=== PATIENT | male | born 1995 | race Caucasian/White ===

== ENCOUNTER 2024-08-06 18:03 | Inpatient (IN) | payer OTHER ==
[2024-08-06 19:16] VITALS: BMI 25.0
[2024-08-06] MEDS ORDERED: BENZOCAINE/MENTHOL (CHLORASEPTIC ) LOZENGE MM PRN (20:04)
[2024-08-06] MEDS ORDERED: guaiFENesin 600 MG TABLET.ER (FP) PO PRN (20:04)
[2024-08-06] MEDS ORDERED: NALOXONE (NARCAN) HCL 4 MG/0.1 ML SPRAY NS PRN (20:04)
[2024-08-06] MEDS ORDERED: BENZONATATE 200 MG CAPSULE PO PRN (20:04)
[2024-08-06] MEDS ORDERED: DICYCLOMINE HCL 10 MG CAPSULE PO PRN (20:04)
[2024-08-06] MEDS ORDERED: POLYETHYLENE GLYCOL (HEALTHYLAX) 3350 17 GM PACKET PO PRN (20:04)
[2024-08-06] MEDS ORDERED: ONDANSETRON *ODT* 4 MG TABLET SL PRN (20:04)
[2024-08-06] MEDS ORDERED: MAGNESIUM HYDROX 2400MG/30ML ORAL SUSPENSION 30 ML CUP PO PRN (20:04)
[2024-08-06] MEDS ORDERED: MAG HYDROX/AL HYDROX/SIMETH 30 ML UNIT-DOSE CUP PO PRN (20:04)
[2024-08-06] MEDS ORDERED: NALOXONE HCL 0.4 MG/ML VIAL IM PRN (20:04)
[2024-08-06] MEDS ORDERED: LOPERAMIDE HCL 2 MG CAPSULE PO PRN (20:04)
[2024-08-06] MEDS ORDERED: BISMUTH SUBSALICYLATE 524 MG/30 ML PO PRN (20:04)
[2024-08-06] MEDS ORDERED: ACETAMINOPHEN 325 MG TABLET (FP) PO PRN (20:04)
[2024-08-06] MEDS ORDERED: IBUPROFEN 400 MG TABLET (FP) PO PRN (20:04)
[2024-08-06] MEDS ORDERED: IBUPROFEN 600 MG TABLET (FP) PO PRN (20:04)
[2024-08-06] MEDS ORDERED: cloNIDine HCL 0.1 MG TABLET PO PRN (20:07)
[2024-08-06] MEDS ORDERED: hydrOXYzine PAMOATE 25 MG CAPSULE (FP) PO ONE (20:16)
[2024-08-06] MEDS: hydrOXYzine PAMOATE 50 MG CAPSULE (FP) PO ONE (20:19)
[2024-08-06] MEDS: MELATONIN 5 MG TABLETS PO SCH (21:23)
[2024-08-06] MEDS: THIAMINE 100 MG TABLET PO SCH (21:24)
[2024-08-06] MEDS: hydrOXYzine PAMOATE 25 MG CAPSULE (FP) PO ONE (21:40)
[2024-08-07] MEDS: PRENATAL VITAMINS W/ FOLIC ACID TABLET (FP) PO SCH (09:56)
[2024-08-07] MEDS: NICOTINE POLACRILEX 2 MG GUM BUC PRN (10:42)
[2024-08-07] MEDS: hydrOXYzine PAMOATE 25 MG CAPSULE (FP) PO PRN (12:32)
[2024-08-07] MEDS: METHOCARBAMOL 500 MG TABLET PO PRN (17:49)
[2024-08-08 13:33] VITALS: BP 104/61; PULSE 61; RESP 17; TEMP 97.9
== END 2024-08-08 12:35 | disposition home or self-care (01) | DRG 897 ==
LOC: YASAS 18:03 → Y3N 20:31
PROVIDERS: ADMIT Allergy & Immunology; ATTEND Surgery
PROC: HZ2ZZZZ Detoxification Services for Substance Abuse Treatment (ICD-10-PCS; principal; 2024-08-06)
DX: F10.20 Alcohol dependence, uncomplicated (principal); F17.210 Nicotine dependence, cigarettes, uncomplicated; F90.9 Attention-deficit hyperactivity disorder, unspecified type; R26.89 Other abnormalities of gait and mobility
CPT/HCPCS: 80305; 80307

== ENCOUNTER 2024-09-09 13:34 | Inpatient (IN) | payer OTHER ==
[2024-09-09 14:23] VITALS: BMI 21.3
[2024-09-09] MEDS ORDERED: ONDANSETRON *ODT* 4 MG TABLET SL PRN (17:16)
[2024-09-09] MEDS ORDERED: NALOXONE (NYS OPIOID OVERDOSE PROGRAM) 4 MG/0.1 ML SPRAY NS PRN (17:16)
[2024-09-09] MEDS ORDERED: NALOXONE (NARCAN) HCL 4 MG/0.1 ML SPRAY NS PRN (17:16)
[2024-09-09] MEDS ORDERED: BENZONATATE 200 MG CAPSULE PO PRN (17:16)
[2024-09-09] MEDS ORDERED: BENZOCAINE/MENTHOL (CHLORASEPTIC ) LOZENGE MM PRN (17:16)
[2024-09-09] MEDS ORDERED: LOPERAMIDE HCL 2 MG CAPSULE PO PRN (17:16)
[2024-09-09] MEDS ORDERED: MAG HYDROX/AL HYDROX/SIMETH 30 ML UNIT-DOSE CUP PO PRN (17:16)
[2024-09-09] MEDS ORDERED: POLYETHYLENE GLYCOL (HEALTHYLAX) 3350 17 GM PACKET PO PRN (17:16)
[2024-09-09] MEDS ORDERED: DICYCLOMINE HCL 10 MG CAPSULE PO PRN (17:16)
[2024-09-09] MEDS ORDERED: BISMUTH SUBSALICYLATE 524 MG/30 ML PO PRN (17:16)
[2024-09-09] MEDS ORDERED: guaiFENesin 600 MG TABLET.ER (FP) PO PRN (17:16)
[2024-09-09] MEDS ORDERED: MAGNESIUM HYDROX 2400MG/30ML ORAL SUSPENSION 30 ML CUP PO PRN (17:16)
[2024-09-09] MEDS ORDERED: chlordiazePOXIDE HCL 25 MG CAPSULE PO PRN (17:16)
[2024-09-09] MEDS ORDERED: IBUPROFEN 400 MG TABLET (FP) PO PRN (17:16)
[2024-09-09] MEDS ORDERED: chlordiazePOXIDE HCL 25 MG CAPSULE ONE (18:14)
[2024-09-09] MEDS ORDERED: PRENATAL VITAMINS W/ FOLIC ACID TABLET (FP) PO ONE (18:14)
[2024-09-09] MEDS: PRENATAL VITAMINS W/ FOLIC ACID TABLET (FP) PO SCH (18:16)
[2024-09-09] MEDS: chlordiazePOXIDE HCL 25 MG CAPSULE PO SCH (18:17)
[2024-09-09] MEDS: NICOTINE POLACRILEX 2 MG GUM BUC PRN (20:03)
[2024-09-09] MEDS: MELATONIN 5 MG TABLETS PO SCH (22:27)
[2024-09-09] MEDS: THIAMINE 100 MG TABLET PO SCH (22:27)
[2024-09-09] MEDS: METHOCARBAMOL 500 MG TABLET PO PRN (22:27)
[2024-09-10] MEDS: PATIENT'S OWN MEDICATION (NON-FORMULARY) (Dextroamphetamine/Amphetamine [Adderall 10 Mg Ta PO SCH (00:40)
[2024-09-10] MEDS ORDERED: PATIENT'S OWN MEDICATION (NON-FORMULARY) (Dextroamphetamine/Amphetamine [Adderall 10 Mg Ta PO SCH (10:00)
[2024-09-10] MEDS: ACETAMINOPHEN 325 MG TABLET (FP) PO PRN (17:55)
[2024-09-11] MEDS: hydrOXYzine PAMOATE 25 MG CAPSULE (FP) PO PRN (02:58)
[2024-09-11] MEDS: chlordiazePOXIDE HCL 25 MG CAPSULE PO SCH (05:51)
[2024-09-11] MEDS: IBUPROFEN 600 MG TABLET (FP) PO PRN (17:33)
[2024-09-12] MEDS ORDERED: chlordiazePOXIDE HCL 10 MG CAPSULE PO PRN
[2024-09-12] MEDS: chlordiazePOXIDE HCL 10 MG CAPSULE PO SCH (05:14)
[2024-09-13] MEDS: chlordiazePOXIDE HCL 10 MG CAPSULE PO SCH (05:55)
[2024-09-14] MEDS: chlordiazePOXIDE HCL 10 MG CAPSULE PO ONE (06:33)
[2024-09-14 07:24] VITALS: BP 117/64; PULSE 71; RESP 17; TEMP 98
== END 2024-09-14 08:57 | disposition home or self-care (01) | DRG 897 ==
LOC: YASAS 13:34 → Y3N 18:11
PROVIDERS: ADMIT Allergy & Immunology; ATTEND Surgery
PROC: HZ2ZZZZ Detoxification Services for Substance Abuse Treatment (ICD-10-PCS; principal; 2024-09-09)
DX: F10.230 Alcohol dependence with withdrawal, uncomplicated (principal); I69.854 Hemiplegia and hemiparesis following other cerebrovascular disease affecting left non-dominant side; F17.210 Nicotine dependence, cigarettes, uncomplicated; F41.9 Anxiety disorder, unspecified
CPT/HCPCS: 80305; 80307; 93005; 93010

== ENCOUNTER 2024-09-25 10:55 | Inpatient (IN) | payer OTHER ==
[2024-09-25 11:17] VITALS: BMI 21.3
[2024-09-25] MEDS ORDERED: NICOTINE POLACRILEX 2 MG LOZENGE BC PRN (12:35)
[2024-09-25] MEDS ORDERED: P-EPHED 60MG/TRIPROLIDI 2.5MG TABLET PO PRN (12:35)
[2024-09-25] MEDS ORDERED: BENZOCAINE/MENTHOL (CHLORASEPTIC ) LOZENGE MM PRN (12:35)
[2024-09-25] MEDS ORDERED: MAG HYDROX/AL HYDROX/SIMETH 30 ML UNIT-DOSE CUP PO PRN (12:35)
[2024-09-25] MEDS ORDERED: BENZONATATE 200 MG CAPSULE PO PRN (12:35)
[2024-09-25] MEDS ORDERED: LOPERAMIDE HCL 2 MG CAPSULE PO PRN (12:35)
[2024-09-25] MEDS ORDERED: guaiFENesin 600 MG TABLET.ER (FP) PO PRN (12:35)
[2024-09-25] MEDS ORDERED: NALOXONE HCL 0.4 MG/ML VIAL IVPUSH PRN (12:35)
[2024-09-25] MEDS ORDERED: POLYETHYLENE GLYCOL (HEALTHYLAX) 3350 17 GM PACKET PO PRN (12:35)
[2024-09-25] MEDS ORDERED: MAGNESIUM HYDROX 2400MG/30ML ORAL SUSPENSION 30 ML CUP PO PRN (12:35)
[2024-09-25] MEDS: METHOCARBAMOL 500 MG TABLET PO PRN (14:54)
[2024-09-25] MEDS: NICOTINE POLACRILEX 2 MG GUM BUC PRN (14:56)
[2024-09-25] MEDS: SUVOREXANT 5 MG TABLET PO PRN (21:32)
[2024-09-25] MEDS: THIAMINE 100 MG TABLET PO SCH (21:32)
[2024-09-25] MEDS: MELATONIN 5 MG TABLETS PO SCH (21:33)
[2024-09-26] MEDS: PRENATAL VITAMINS W/ FOLIC ACID TABLET (FP) PO SCH (09:22)
[2024-09-26] MEDS ORDERED: TUBERCULIN PPD 5 TU/0.1ML VIAL ID ONE ×2 (14:47→15:00)
[2024-09-26] MEDS: IBUPROFEN 600 MG TABLET (FP) PO PRN (14:55)
[2024-09-26] MEDS: IBUPROFEN 400 MG TABLET (FP) PO PRN (16:49)
[2024-09-27] MEDS: ACETAMINOPHEN 325 MG TABLET (FP) PO PRN (05:30)
[2024-09-27 06:55] VITALS: BP 109/79; PULSE 60; RESP 16; TEMP 98
== END 2024-09-27 10:20 | disposition left against medical advice (07) | DRG 894 ==
LOC: YASAS 10:55 → Y3NR 13:28 → Y5N 09-26 11:28
PROVIDERS: ADMIT Psychiatry & Neurology Pain Medicine; ATTEND Psychiatry & Neurology Pain Medicine
PROC: HZ42ZZZ Group Counseling for Substance Abuse Treatment, Cognitive-Behavioral (ICD-10-PCS; principal; 2024-09-25)
DX: F10.20 Alcohol dependence, uncomplicated (principal); F14.20 Cocaine dependence, uncomplicated; I69.854 Hemiplegia and hemiparesis following other cerebrovascular disease affecting left non-dominant side; F12.250 Cannabis dependence with psychotic disorder with delusions; F17.210 Nicotine dependence, cigarettes, uncomplicated; F41.9 Anxiety disorder, unspecified; G47.00 Insomnia, unspecified
CPT/HCPCS: 80305; 80307; 87811